=== PATIENT | female | born 1975 | race Caucasian/White ===

== ENCOUNTER → 2023-10-05 11:36 | Outpatient (CLI) | payer OTHER, SELFPAY ==
--- NOTE | 2023-10-05 | DI.MG.S_ITS ---
BILATERAL DIGITAL SCREENING MAMMOGRAM 3D/2D WITH CAD: 10/05/2023 CLINICAL: Routine screening. Family history of breast cancer. Comparison is made to exams dated: 03/18/2022 mammogram - outside location, 02/15/2018 mammogram, and 03/03/2017 mammogram - [facility]. There are scattered areas of fibroglandular density in both breasts (category b / 25%-50% glandular tissue). Current study was also evaluated with a Computer Aided Detection (CAD) system. No significant masses, calcifications, or other findings are seen in either breast. There has been no significant interval change. IMPRESSION: NEGATIVE There is no mammographic evidence of malignancy. A 1 year screening mammogram is recommended. Based on Tyrer-Cuzick model (a risk assessment model), the patient's lifetime risk is 21.8% and her 10 year risk is 5.3%. If a patient has an elevated risk, a more comprehensive evaluation should be considered and/or a referral to a genetic counselor. The [place] [employer], [place], and NCCN Guidelines advise the consideration of Breast MRI as an adjunct to screening mammography in patients whose Lifetime risk to develop breast cancer is 20% or higher. This exam was interpreted at Station ID: [id number]. NOTE: For mammograms, a report in lay terms will be sent to the patient. Approximately 15% of breast malignancies will not be visualized mammographically. In the management of a palpable breast mass, a negative mammogram must not discourage biopsy of a clinically suspicious lesion. Electronically Signed By: Berto pereira/kennedy:10/05/2023 13:00:29 letter sent: Normal Exam ACR BI-RADS Category 1: Negative [id number]
== END ==
PROVIDERS: PCP Family Medicine; Referring Provider Family Medicine; Visit Provider Family Medicine
DX: Z12.31 Encounter for screening mammogram for malignant neoplasm of breast (principal); Z80.3 Family history of malignant neoplasm of breast
CPT/HCPCS: 77063; 77067

== ENCOUNTER → 2024-11-24 10:45 | Outpatient (CLI) | payer OTHER, SELFPAY ==
--- NOTE | 2024-11-24 | DI.MG.S_ITS ---
BILATERAL DIGITAL SCREENING MAMMOGRAM 3D/2D WITH CAD: 11/24/2024 CLINICAL: Routine screening. Family history of breast cancer. Comparison is made to exams dated: 10/05/2023 mammogram - [facility], 03/18/2022 mammogram - outside [facility], and 06/18/2020 mammogram - [facility]. There are scattered areas of fibroglandular density (category b / 25%-50% glandular tissue). Current study was also evaluated with a Computer Aided Detection (CAD) system. No significant masses, calcifications, or other findings are seen in either breast. There has been no significant interval change. IMPRESSION: NEGATIVE There is no mammographic evidence of malignancy. A 1 year screening mammogram is recommended. Based on Tyrer-Cuzick model (a risk assessment model), the patient's lifetime risk is 22.1% and her 10 year risk is 5.7%. If a patient has an elevated risk, a more comprehensive evaluation should be considered and/or a referral to a genetic counselor. The [place] [employer], [employer] [place] [employer], and NCCN Guidelines advise the consideration of Breast MRI as an adjunct to screening mammography in patients whose Lifetime risk to develop breast cancer is 20% or higher. This exam was interpreted at Station ID: [id number]. NOTE: For mammograms, a report in lay terms will be sent to the patient. Approximately 15% of breast malignancies will not be visualized mammographically. In the management of a palpable breast mass, a negative mammogram must not discourage biopsy of a clinically suspicious lesion. Electronically Signed By: Ko edmonds/kennedy:11/27/2024 13:54:08 letter sent: Normal Exam ACR BI-RADS Category 1: Negative
== END ==
PROVIDERS: PCP Family Medicine; Referring Provider Family Medicine; Visit Provider Family Medicine
DX: Z12.31 Encounter for screening mammogram for malignant neoplasm of breast (principal); Z80.3 Family history of malignant neoplasm of breast
CPT/HCPCS: 77063; 77067

== ENCOUNTER → 2025-05-17 08:18 | Outpatient (CLI) | payer OTHER, SELFPAY ==
--- NOTE | 2025-05-17 08:20 | DI.MRI.S_ITS ---
MR breast BI wo/w con: 05/17/2025. BI-RADS: 1 CLINICAL: 49-year old female for bilateral diagnostic breast MRI. Current reported family history of breast cancer: maternal grandmother, mother, sister, maternal aunt and paternal aunt. PRIOR EXAMS 11/24/2024, 10/05/2023, 06/18/2020. MRI TECHNIQUE Bilateral breast MRI was performed on a 1.5 Brenda magnet using a dedicated breast coil with mild compression. Axial T1 and T2 STIR sequences were obtained. Dynamic contrast enhanced VIBRANT fat-suppressed sequences were obtained. Delayed sagittal high resolution or sagittal reconstructed isotropic sequence was also obtained. Subtraction images and maximum intensity projection images were obtained. The study was evaluated using Year Up software. IV Contrast: 20 ml ProHance. FIBROGLANDULAR TISSUE Bilateral: B. Scattered fibroglandular tissue. BACKGROUND PARENCHYMAL ENHANCEMENT Bilateral: Mild symmetrical background parenchymal enhancement. BREAST FINDINGS Bilateral: No suspicious mass, suspicious non-mass enhancement, or other concerning finding identified. IMPRESSION: * No evidence of malignancy. RECOMMENDATIONS Bilateral * According to the Tyrer-Cuzick Risk Assessment Model, based on the information provided your patient has a greater than 20% lifetime risk for developing breast cancer. Consider supplemental screening with breast MRI and participation in a high risk screening program. * Annual screening mammography. OVERALL ASSESSMENT CATEGORY BI-RADS-1: Negative. ELECTRONICALLY SIGNED: Nhi Lopez M.D. on 05/20/2025 at 12:30:05 AM PT Interpreting Station ID: [id number]
== END ==
LOC: MRI 08:19
PROVIDERS: PCP Family Medicine; Referring Provider Student in an Organized Health Care Education/Training Program; Visit Provider Student in an Organized Health Care Education/Training Program
DX: R92.8 Other abnormal and inconclusive findings on diagnostic imaging of breast (principal); Z80.3 Family history of malignant neoplasm of breast
CPT/HCPCS: 77049; A9579

== ENCOUNTER 2025-07-19 11:12 | Day surgery (SDC) | payer OTHER, SELFPAY ==
--- NOTE | 2025-07-19 | PATH_ITS ---
[facility] Accession Number: [id number] No. of containers..01 Tissue . 01 Material submitted: . rectum - RECTAL POLYP . 01 Diagnosis: RECTUM: Hyperplastic polyp. MRV 07/31/2025 1542 Local . 01 Electronically signed: . Miriam Soto DO, Pathologist NPI- [id number] . 01 Gross description: . Received in formalin with two identifiers and rectal polyp is a single corley soft tissue fragment measuring 0.3 cm in greatest dimension, entirely submitted in A1. (AER:[id number]) /MRV 07/24/2025 1402 Local . 01 Pathologist provided ICD-10: Z12.11 . 01 CPT . 098199 Specimen Comment: A courtesy copy of this report has been sent to [phone] Performed at: [address] [id number] MD Brando Mckeon MD Phone: [phone]
[2025-07-19 11:27] VITALS: BP 112/73; PULSE 87; RESP 16; TEMP 36.2; O2SAT 98
[2025-07-19] MEDS: LACTATED RINGERS 1,000 ML 42 ML IV (11:32)
--- NOTE | 2025-07-19 11:42 | PM.HP.IH.1 ---
History of Present Illness History of Present Illness Date Patient Seen: 07/19/25 Time Patient Seen: 11:42 Chief complaint: Screening Colonoscopy Narrative: MariaE lena is a 50-year-old woman here for a screening colonoscopy, her first. No family history of colon cancer. [facility] Medical History (Updated 07/19/25 @ 11:42 by Reyes Sr MD) HPV test positive Low grade squamous intraepith lesion on cytologic smear cervix (lgsil) Social History Smoking Status: Never smoker alcohol intake: never Meds Home Medications and Allergies Home Medications ?Medication ?Instructions ?Recorded ?Confirmed ?Type fexofenadine 60 mg tablet (Ivette 120 mg PO Q24H 10/12/23 07/19/25 History Allergy) sodium sul 1.479 gram-potas ch See Rx Instructions PO PER PKG DIR 07/10/25 07/19/25 Rx 0.188 gram-magnes sul 0.225 gram #24 tabs tablet (Sutab) Allergies Allergy/AdvReac Type Severity Reaction Status Date / Time No Known Drug Allergies Allergy Unverified 07/19/25 11:23 Exam Vital Signs (past 8 hours): - 07/19/25 11:27 Temperature 97.1 F L Pulse Rate 87 Respiratory Rate 16 Blood Pressure 112/73 Pulse Oximetry 98 Oxygen Delivery Method Room Air Oxygen Delivery Method Room Air Const General: healthy appearing Assessment & Plan Assessment and plan (1) Colon cancer screening: Status: Acute Plan Colonoscopy Time-Based Coding :: [TOTAL MINUTES] spent with patient and on the chart (including review of chart, obtaining history, exam, reviewing outside data, placing orders, documenting exam and treatment plan, and counseling patient) on [DATE]. PROFEE Set O Type Operator Document charge(s): No
[2025-07-19 12:05] VITALS: BP 106/55; PULSE 74; RESP 15; TEMP 36.6; O2SAT 97
[2025-07-19 12:11] VITALS: BP 102/59; PULSE 76; RESP 14; O2SAT 98
--- NOTE | 2025-07-19 12:11 | PM.OP.COLON ---
Operative Date/Time/Diagnoses Date of procedure: 07/19/25 Time of procedure: 12:11 Pre-op diagnosis: Colon cancer screening Post-op diagnosis: same Procedure & Clinicians Study performed: Colonoscopy Same procedure(s) as scheduled: Yes Surgeon: Reyes Sr Anesthesia Type: MAC +/- Procedure Notes Procedure in detail: Surgeon: Reyes Sr MD Anesthesia: Tricia Drake DO Procedure: The patient was brought to the endoscopy suite, placed in left lateral decubitus position. The patient was connected to monitoring devices. A time-out was performed. Sedation was administered. Once the patient was adequately sedated, a digital rectal exam was performed and was normal. The scope was then inserted and advanced to the cecum where the appendiceal orifice was identified and photographed. The scope was then slowly withdrawn over greater than 6 minutes. The mucosa was thoroughly inspected. There was one small polyp in the rectum removed with the Jumbo forceps.. The scope was retroflexed in the rectum. The scope was straightened and removed. The patient was awakened and brought to recovery. Scope withdrawal time: 6 minutes Sedation time: 15 minutes EBL: 2 mL Findings: A small rectal polyp Post-procedure Disposition: PACU
[2025-07-19 12:15] VITALS: BP 141/89; PULSE 80; RESP 24; TEMP 36.6; O2SAT 99
[2025-07-19 12:20] VITALS: BP 142/83; PULSE 79; RESP 26; O2SAT 97
== END 2025-07-19 12:43 | disposition home or self-care (01) ==
PROVIDERS: PCP Family Medicine; Referring Provider Family Medicine; Visit Provider Surgery
PROC: 0DJD8ZZ Inspection of Lower Intestinal Tract, Via Natural or Artificial Opening Endoscopic (ICD-10-PCS; CPT 45378; principal; 2025-07-19 12:30)
DX: Z12.11 Encounter for screening for malignant neoplasm of colon (principal); K62.1 Rectal polyp
CPT/HCPCS: 45380; J2405; J2704; J7120